=== PATIENT | female | born 1935 | race Caucasian/White ===

== ENCOUNTER 2019-02-21 06:29 | Inpatient (IN) | payer MEDICARE ==
[2019-02-21] MEDS ORDERED: D5 1/2 NS w/20 mEq KCL 1,000 ML IV SCH (08:15)
[2019-02-21] MEDS ORDERED: Pantoprazole 40 MG VIAL ONE (08:23)
[2019-02-21] MEDS ORDERED: Acetaminophen 325 MG TAB PO PRN (08:25)
[2019-02-21] MEDS ORDERED: Ondansetron PF 4 MG/2 ML Vial IVP PRN (08:25)
[2019-02-21] MEDS ORDERED: Ondansetron ODT 4 MG TAB PO PRN (08:25)
[2019-02-21] MEDS ORDERED: Acetaminophen 650 MG Suppository PR PRN (08:25)
--- NOTE | 2019-02-21 08:25 | RAD ---
EXAM: XR Abdomen 1 View/KUB PROVIDED CLINICAL HISTORY: Abdominal pain COMPARISON: None FINDINGS: Enteric catheter is noted, the tip of which overlies the left upper quadrant. Dilated loops of gas-fi lled small bowel are demonstrated. Correlate with recent CT. IMPRESSION: As above.
[2019-02-21] MEDS ORDERED: Dextrose 50% Abboject 50 ML SYRINGE SLOW IVP PRN (09:40)
[2019-02-21] MEDS ORDERED: Dextrose 5% in Water 1,000 ML IV PRN (09:40)
[2019-02-21 10:17] LABS: Lactic Acid 2.4 mmol/L (0.5-2.2)
[2019-02-21 10:19] LABS: Phosphorus 2.6 mg/dL (2.3-4.7)
[2019-02-21 10:21] LABS: ALT (SGPT) 12 U/L (8-55); AST (SGOT) 14 U/L (5-34); Alkaline Phosphatase 54 U/L (40-150); Anion Gap 13 mmol/L (10-20); BUN (Urea Nitrogen) 9 mg/dL (9.8-20.1); Bilirubin, Total 0.4 mg/dL (0.2-1.2); Calc. Creatinine Clearance 0 mL/min (70-130); Calcium 8.8 mg/dL (7.8-10.44); Carbon Dioxide 21 mmol/L (23-31); Chloride 106 mmol/L (98-107); Estimated GFR-MDRD 62; Globulin 2.7 g/dL (2.4-3.5); Glucose 191 mg/dL (83-110); Magnesium 1.5 mg/dL (1.6-2.6); Potassium 3.8 mmol/L (3.5-5.1); Protein, Total 6.7 g/dL (6.0-8.3); Sodium 136 mmol/L (136-145)
--- NOTE | 2019-02-21 10:31 | HP ---
PRIMARY CARE PHYSICIAN: Lupillo Lin MD CHIEF COMPLAINT: Abdominal pain, nausea, and vomiting. HISTORY OF PRESENT ILLNESS: Ms. Guevara is an 83-year-old female, with past medical history of hypertension, hyperlipidemia, diabetes mellitus type 2, gastroesophageal reflux disease, who had presented to [place] [facility] late last night due to worsening abdominal pain, nausea, and vomiting that had started late last night. She states that she had vomited every 20 to 30 minutes from 10 p.m. to 2 a.m. and states that she had vomited over 10 times. She had stated that she also had a bowel movement yesterday, which had denied any blood, any fever, chills, headache, blurred vision, dizziness, chest pain, palpitations, or shortness of breath. She had taken her home Tylenol and Nexium, which had not helped with her symptoms. In [place], she underwent a CT of her abdomen, which showed a high-grade distal small bowel obstruction with transition point in the pelvis. Therefore, she was given IV Zosyn, 2 L of normal saline, morphine and Zofran for her symptoms. She was then transferred by EMS to this ED, where an NG tube was placed, and Dr. Tai with General Surgery was also consulted for further recommendations. The patient's symptoms improved, and no further vomiting at this time. She also reported that her abdominal pain has also improved. She then had an x-ray, which showed that NG tube was in place with dilated loops of gas-filled small bowel demonstrated. REVIEW OF SYSTEMS: All other systems reviewed and found to be negative unless mentioned in the HPI. PAST MEDICAL HISTORY: Hypertension, hyperlipidemia, diabetes mellitus type 2, gastroesophageal reflux disease. PAST SURGICAL HISTORY: Back, right knee, and leg surgery. PAST PSYCHIATRIC HISTORY: None. SOCIAL HISTORY: The patient denies alcohol, tobacco, or illicit drug use. KNOWN ALLERGIES: No known drug allergies. CURRENT HOME MEDICATIONS: 1. Aspirin 325 mg daily. 2. Metformin 500 mg in the morning and 1000 at bedtime. 3. Hydralazine 10 mg daily. 4. Tramadol 50 mg oral every 8 hours as needed for pain. 5. Rosuvastatin 20 mg oral at bedtime. 6. Amlodipine 5 mg oral daily. 7. Losartan-hydrochlorothiazide 100/12.5 mg oral daily. PHYSICAL EXAMINATION: VITAL SIGNS: BP 137/79, pulse 97, respirations 16, temperature 98.7, O2 saturation 95% on room air. GENERAL: The patient is awake, alert, and oriented x3. She is currently lying comfortably in bed and in no acute distress. Her family is at bedside. HEENT: Atraumatic and normocephalic. Pupils are round and reactive to light. Extraocular muscles intact. Moist mucous membranes noted. NG tube is in place and in good suction. NECK: Soft, supple. Trachea midline. CARDIOVASCULAR: Positive S1 and S2. Regular rate and rhythm. No murmur auscultated. RESPIRATORY: Clear to auscultation bilaterally. No wheezes, rales, or rhonchi. ABDOMEN: Soft, mild tenderness throughout abdomen. More prominent in the epigastric and central regions. Bowel sounds distant. MUSCULOSKELETAL: Moves all extremities equal. Pedal and radial pulses 2+ bilaterally. No edema noted. NEUROLOGIC: Cranial nerves 2 through 12 grossly intact. No focal deficits noted. Speech intact and normal. Gait not assessed. SKIN: Warm, dry and intact. No rashes. No ulceration noted. PSYCHIATRIC: Good mood and affect. LABORATORY DATA: WBC 13.2, RBC 5.24, hemoglobin 13.4, hematocrit 41.3, platelet 224. Sodium 138, potassium 3.7, anion gap 21, BUN 15, creatinine 1.15, estimated GFR 45, glucose 201, lactic acid 4.2, AST 12, ALT 14, troponin less than 0.010. Urinalysis showed 15 ketones, trace blood, otherwise unremarkable. DIAGNOSTIC IMAGING: CT abdomen and pelvis revealed high-grade distal small bowel obstruction with transition point in the pelvis. Abdominal x-ray showed enteric catheter is noted, which overlies the left upper quadrant. Dilated loops of gas-filled small bowel are demonstrated. ASSESSMENT/PLAN: 1. Small bowel obstruction. General Surgery Services, Dr. Tai was consulted by the ED staff. An NG tube was placed and in good suction. She will also be placed on IV fluids with D5W along with other symptomatic treatment. She will also be placed n.p.o. at this time and monitor closely on the medical floor. 2. History of hypertension, currently stable at this time. We will add as needed IV antihypertensives since she will be n.p.o., and then, we will restart her home regimen when she is able to tolerate an oral diet. 3. Hyperlipidemia. 4. Diabetes mellitus type 2. Hold home metformin. At this time, we will place her on insulin sliding scale with frequent Accu-Cheks and continue the D5 half-normal saline for now. 5. Gastroesophageal reflux disease. Continue on IV Pepcid. 6. Deep vein thrombosis and gastrointestinal prophylaxis. 7. Code status, full code. 8. Surrogate decision maker is her daughter, Karen Heredia. DISPOSITION: Pending further workup and clinical findings. Job ID: [id number]
[2019-02-21] MEDS: Famotidine/PF 20 mg/2ml Vial SLOW IVP SCH ×2 (10:49→21:00)
[2019-02-21] MEDS: D5 1/2 NS w/20 mEq KCL 1,000 ML IV SCH ×2 (10:49→19:30)
[2019-02-21 11:28] VITALS: BMI 33.3
[2019-02-21] MEDS: HumaLOG 300 UNITS/3 ML VIAL SC PRN (11:47)
[2019-02-21] MEDS ORDERED: Magnesium Sulfate 4 GM in Sodium Chloride 0.9% 250 ML 250 ML IVPB SCH (13:00)
--- NOTE | 2019-02-21 13:01 | CON ---
DATE OF CONSULTATION: 02/21/2019 CHIEF COMPLAINT: Small-bowel obstruction. HISTORY OF PRESENT ILLNESS: This is an 83-year-old female, who presents with acute onset of severe abdominal pain, associated with nausea and vomiting. She was seen in the emergency department where CT scan reveals evidence of high-grade small-bowel obstruction. The patient had an NG tube placed and she feels better. She denies any abdominal pain this morning. She notes persistent bloating, but no nausea with NG tube placed. The NG tube has not put out much. She had previous episode of admission, but she describes it more of a gastritis. No previous abdominal surgery. She had colonoscopy 10 years ago, which was within normal limits. They did not recommend a repeat. She denies history of chronic anorexia, food fear, melena, or hematochezia. PAST MEDICAL HISTORY: Includes hypertension, diabetes mellitus type 2, hyperlipidemia, and GERD. PAST SURGICAL HISTORY: Back, knee, and leg surgery. SOCIAL HISTORY: No smoking, alcohol, or other drugs. ALLERGIES: NO KNOWN DRUG ALLERGIES. MEDICATIONS: See list. REVIEW OF SYSTEMS: Ten-system review of systems is otherwise negative unless described above. PHYSICAL EXAMINATION: VITAL SIGNS: Blood pressure is 124/63, pulse 63, respirations 18, and she is afebrile. HEENT: Sclerae anicteric. Oropharynx clear. NECK: No lymphadenopathy. CHEST: Clear. HEART: Regular rate and rhythm. ABDOMEN: Soft, minimally distended. She has occasional bowel sounds. Abdomen is really nontender. No guarding or rebound. No obvious abdominal or inguinal hernias. EXTREMITIES: No ischemia or edema to extremities. LABORATORY DATA: White blood cell count is 13, hemoglobin 13, platelet count is 224. Sodium 136, potassium 4.1, creatinine is 0.88, magnesium 1.5. Liver tests normal. ASSESSMENT: 1. Small-bowel obstruction, no obvious causative surgery history. 2. Diabetes mellitus. 3. Hypertension. 4. Hyperlipidemia. 5. Gastroesophageal reflux disease. PLAN: Continue NG tube today, IV fluids. Tomorrow, we will order a Gastrografin small bowel follow-through. We will follow with you. Job ID: [id number]
--- NOTE | 2019-02-21 16:02 | HP ---
HISTORY OF PRESENT ILLNESS: Please refer to the history and physical dictated by Franky Randolph, for details on the hospitalization. The patient follows Dr. Lin. She presented to [facility] this morning with sudden onset of abdominal pain along with nausea and several episodes of vomiting. A CT scan of the abdomen at the emergency room was consistent with high-grade distal small bowel obstruction. The patient denies any abdominal surgeries in the past. She was transferred to this facility for hospital admission. PHYSICAL EXAMINATION: GENERAL: On examination, her abdominal pain has significantly improved. She currently has NG tube on low intermittent suction. VITAL SIGNS: Showed temperature of 97.7, pulse rate of 63, respirations of 18, blood pressure of 124/63 with O2 saturation of 96% on room air. ABDOMEN: Soft, nontender with bowel sounds. No rebound or guarding. No costovertebral angle tenderness. LABORATORY DATA: Labs were reviewed. Lactic acid at [facility] was 4.2. Repeat lactic acid was 2.4. Magnesium was 1.5, phosphorus was 2.6, creatinine was 0.8 from 1.1 this morning, bicarbonate was 18 at the emergency room. WBC was 13.2. IMAGING STUDIES: CT scan of the abdomen and pelvis by my review as discussed above. IMPRESSION: 1. High-grade small bowel obstruction. 2. Systemic inflammatory response syndrome secondary to #1. 3. Dehydration with acute kidney injury and lactic acidosis secondary to nausea, vomiting. 4. Hypomagnesemia. 5. Hypertension. 6. Hyperlipidemia. 7. Diabetes mellitus type 2. 8. Chronic kidney disease stage 2. PLAN: The patient will be monitored on the surgical floor. We will continue NG tube suction with IV fluids. Insulin sliding scale has been started. We will get Accu-Chek q.6 hours. Replace magnesium. Consult General Surgery. Monitor labs on a daily basis. Walking program. The patient was advised to ambulate. GI prophylaxis. DVT prophylaxis with SCDs. Plan was discussed with the patient and the family at the bedside, they stated understanding. The patient was seen and examined today. I discussed the case with LITO Thomas in detail. Job ID: [id number]
[2019-02-22] MEDS: HumaLOG 300 UNITS/3 ML VIAL SC PRN ×4 (00:31→16:13)
[2019-02-22] MEDS: D5 1/2 NS w/20 mEq KCL 1,000 ML IV SCH ×2 (05:42→11:16)
[2019-02-22 06:01] LABS: #Eosinphils 0.1 thou/uL (0.0-0.7); #Lymphocytes 2.2 thou/uL (1.20-3.40); #Monocytes 0.8 thou/uL (0.11-0.59); #Neutrophils 4.7 thou/uL (1.40-6.50); %Basophils 0.6 % (0.0-1.0); %Eosinophils 1.2 % (0.0-10.0); %Lymphocytes 27.9 % (21.0-51.0); %Monocytes 10.5 % (0.0-10.0); %Neutrophils 59.8 % (42.0-75.0); Hemoglobin 12.1 g/dL (12.0-16.0); Mean Corpuscular HGB CONC 33.1 g/dL (32.0-36.0); Mean Corpuscular Hemoglobin 27.6 pg (27.0-31.0); Mean Corpuscular Volume 83.5 fL (78.0-98.0); Mean Platelet Volume 7.7 fL (7.4-10.4); Platelet Count 202 thou/uL (130-400); RBC Distribution Width 13.4 % (11.5-14.5); White Blood Cell (WBC) Count 7.8 thou/uL (4.8-10.8)
[2019-02-22 06:17] LABS: Lactic Acid 1.2 mmol/L (0.5-2.2)
[2019-02-22 06:22] LABS: Phosphorus 2.3 mg/dL (2.3-4.7)
[2019-02-22 06:23] LABS: ALT (SGPT) 11 U/L (8-55); AST (SGOT) 17 U/L (5-34); Albumin 3.6 g/dL (3.4-4.8); Alkaline Phosphatase 49 U/L (40-150); Anion Gap 11 mmol/L (10-20); BUN (Urea Nitrogen) 4 mg/dL (9.8-20.1); Bilirubin, Total 0.5 mg/dL (0.2-1.2); Calc. Creatinine Clearance 89 mL/min (70-130); Calcium 8.4 mg/dL (7.8-10.44); Carbon Dioxide 23 mmol/L (23-31); Chloride 108 mmol/L (98-107); Estimated GFR-MDRD 79; Globulin 2.6 g/dL (2.4-3.5); Glucose 149 mg/dL (83-110); Potassium 3.7 mmol/L (3.5-5.1); Protein, Total 6.2 g/dL (6.0-8.3); Sodium 138 mmol/L (136-145)
[2019-02-22] MEDS: Famotidine/PF 20 mg/2ml Vial SLOW IVP SCH (07:49)
--- NOTE | 2019-02-22 10:09 | RAD ---
EXAM: XR Small Bowel STANDARD PROVIDED CLINICAL HISTORY: Small bowel obstruction COMPARISON: AP abdominal radiograph on 02/21/2019. FINDINGS: Clinical Reimbursement Specialist view of the abdomen demonstrates nasogastric tube stable in position overlying the left upper q uadrant. Previously noted dilated loops of small bowel within the abdomen have improved when compared to the prior study with only a single mildly prominent distended gas-filled loop of small cruz wel in the right mid abdomen. Degenerative changes noted in the spine. A punctate calculus is seen overlying the inferior pole left renal shadow. Gastrografin small bowel study demonstrates normal caliber loops of small bowel. Contrast is seen in the colon by 1 hour. A 1 hour and 15 minute image post administration of contrast demonstrates contrast throughout the majority of the colon extending to the level of the sigmoid colon. IMPRESSION: 1. Normal caliber loops of small bowel without findings to suggest a bowel obstruction. Approximate t ransit time of contrast through the small bowel is 1 hour. 2. Left renal calculus.
--- NOTE | 2019-02-22 10:38 | PRG ---
DATE OF SERVICE: 02/22/2019 SUBJECTIVE: Ms. Guevara has no complaints. She had minimal output from her NG overnight. No more nausea. She was passing gas overnight. She is afebrile. OBJECTIVE: VITAL SIGNS: Stable. ABDOMEN: Soft, nontender, and nondistended. No guarding or rebound. She has already had a bowel movement after her small bowel followthrough. Small bowel followthrough was normal, showed good progress. ASSESSMENT: Partial small bowel obstruction, resolved. PLAN: Remove NG tube. She can do clears. She can be discharged later home today or tomorrow. Job ID: [id number]
[2019-02-22] MEDS ORDERED: MD-Gastroview 120 ML BOT ONE (12:57)
--- NOTE | 2019-02-22 13:16 | PDOC.HOSPP ---
- Subjective Encounter Date: 02/22/19 Encounter Time: 11:00 Subjective: Patient seen and examined for SBO . s/o small bowel f/t. Had 3-4 BMs. No N/V. No new complaints. No overnight events - Objective Vital Signs & Weight: Vital Signs (12 hours) Temp Pulse Resp BP Pulse Ox 02/22/19 11:22 97.9 F 91 16 154/85 H 94 L 02/22/19 07:35 99.2 F 70 16 154/75 H 97 02/22/19 04:00 98.1 F 70 16 145/67 H 97 Weight Weight 200 lb I&O: 02/21/19 02/22/19 02/23/19 06:59 06:59 06:59 Intake Total 2690 Output Total 50 Balance 2640 Result Diagrams: 02/22/19 05:40 02/22/19 05:40 Additional Labs: Accuchecks 02/22/19 02/22/19 02/22/19 11:36 05:27 00:03 POC Glucose 157 H 160 H 190 H 02/21/19 17:52 POC Glucose 118 H Hospitalist ROS - Review of Systems Respiratory: denies: cough, dry, shortness of breath, hemoptysis, SOB with excertion, pleuritic pain, sputum, wheezing, other Cardiovascular: denies: chest pain, palpitations, orthopnea, paroxysmal noc. dyspnea, edema, light headedness, other - Medication Medications: Active Medications Generic Name Dose Route Start Last Admin Trade Name Freq PRN Reason Stop Dose Admin Famotidine 20 mg 02/21/19 09:00 02/22/19 07:49 Pepcid SLOW IVP 20 mg Q12HR PEDRO Administration Potassium Chloride/Dextrose/Sod Cl 1,000 mls @ 110 mls/hr 02/21/19 08:37 11:16 D5 1/2 Ns W/20 Meq Kcl IV Not Given .Q9H6M PEDRO Insulin Human Lispro 0 units 02/21/19 09:40 02/22/19 11:36 Humalog SC 2 units .MILD SLIDING SCALE PRN Administration Mild Correctional Scale - Exam General Appearance: NAD Heart: RRR, no rubs Respiratory: CTAB, no rales Gastrointestinal: soft, non-tender, normal bowel sounds Extremities: no edema Hosp A/P - Plan IMPRESSION: 1. High-grade small bowel obstruction. 2. SIRS secondary to #1. 3. Dehydration with KAYLEE 4. Hypomagnesemia. 5. Hypertension. 6. Hyperlipidemia. 7. Diabetes mellitus type 2. 8. Chronic kidney disease stage 2. PLAN: Clear liqd diet Reduce IVF Resume home meds Hold Metformin Hold HCTZ Cont sliding scale BMP in AM
[2019-02-22] MEDS ORDERED: traMADol HCl 50 MG TAB PO PRN (13:19)
[2019-02-22] MEDS ORDERED: D5 1/2 NS w/20 mEq KCL 1,000 ML IV SCH (13:21)
[2019-02-22 15:07] VITALS: BP 146/72; TEMP 98.1
--- NOTE | 2019-02-22 15:40 | DIS ---
DATE OF ADMISSION: 02/21/2019 DATE OF DISCHARGE: 02/22/2019 DISCHARGE DISPOSITION: Home. FOLLOWUP: 1. Follow up with primary care physician, Dr. Lin in 1 week. 2. Follow up with General Surgery, Dr. Tai as needed. ALLERGIES: NO KNOWN DRUG ALLERGIES. DISCHARGE MEDICATIONS: Same as admission medication. The patient was seen and examined on the day of discharge. Please refer to my note for details. BRIEF HOSPITAL COURSE: The patient is an 83-year-old white female, who presented to the emergency room with abdominal discomfort with nausea and vomiting. Her workup was consistent with small-bowel obstruction. NG tube was placed. She was kept n.p.o. with IV fluids. Electrolytes were replaced. This morning, she underwent small-bowel follow-through. After which, she started having several bowel movements. She tolerated a full liquid diet. She has been cleared by General Surgery for discharge. FINAL DIAGNOSES: 1. High-grade small-bowel obstruction. 2. Systemic inflammatory response syndrome secondary to #1. 3. Dehydration with acute kidney injury and lactic acidosis secondary to nausea and vomiting. Lactic acid on admission was 4.2, at discharge is 1.2. Her creatinine on admission was 1.15, at discharge is 0.71. 4. Hypomagnesemia, replaced. 5. Hypertension. 6. Hyperlipidemia. 7. Diabetes mellitus, type 2. 8. Chronic kidney disease, stage 3. 9. Left renal calculus. Primary care physician advised to follow. Plan was discussed with the patient in detail. She stated understanding. Job ID: [id number]
[2019-02-22] MEDS ORDERED: hydrALAZINE 10 MG TAB PO SCH (21:00)
[2019-02-22] MEDS ORDERED: Losartan 25 MG TAB PO SCH (21:00)
[2019-02-22] MEDS ORDERED: Famotidine 20 MG TAB PO SCH (21:00)
[2019-02-22] MEDS ORDERED: Polyethylene Glycol 3350 17 GM Packet PO SCH (21:00)
[2019-02-22] MEDS ORDERED: Rosuvastatin 20 MG TAB PO SCH (21:00)
[2019-02-23] MEDS ORDERED: Aspirin 325 MG TAB PO SCH (09:00)
[2019-02-23] MEDS ORDERED: Calcium Carbonate + Vit D 250 MG TAB PO SCH (09:00)
[2019-02-23] MEDS ORDERED: Amlodipine 5 MG TAB PO SCH (09:00)
--- NOTE | 2019-02-23 11:26 | PQF ---
TATYANA CORONEL MALIK MD [id number] SURG [id number] CLINICAL DOCUMENTATION IMPROVEMENT CLARIFICATION FORM: ICD-10 Updated PLEASE DO AN ADDENDUM TO THE PROGRESS NOTE WITH ANY DOCUMENTATION UPDATES OR ADDITIONS AND CARRY THROUGH TO DC SUMMARY. THANK YOU. DATE: 02-23-19 ATTN: DR. RIOS Please exercise your independent, professional judgment in responding to the clarification form. Clinical indicators are provided on the bottom of this form for your review Please check appropriate box(s): [ x] SIRS due to SBO With organ dysfunction of lactic acidosis and KAYLEE [ ] SIRS due to SBO Without organ dysfunction [ ] Other diagnosis [ ] Unable to determine For continuity of documentation, please document condition throughout progress notes and discharge summary. Thank You. CLINICAL INDICATORS - SIGNS / SYMPTOMS / LABS 02-22 ([facility]) DC SUMMARY: * SIRS secondary to HIGH-GRADE SMALL-BOWEL OBSTRUCTION * Dehydration with KAYLEE and lactic acidosis d/t nausea and vomiting. LABS: 02-21 LACTIC ACID 2.4 BUN 9 4 GFR 62 79 RISK FACTORS 02-21 ([facility]) H&P: HIGH-GRADE SMALL BOWEL OBSTRUCTION 02-22 ([facility]) DC SUMMARY: * SIRS secondary to HIGH-GRADE SMALL-BOWEL OBSTRUCTION * Dehydration with KAYLEE and lactic acidosis d/t nausea and vomiting. TREATMENT 02-21 ([facility] H&P): * MONITORED ON SURGICAL FLOOR * NG TUBE SUCTION W/ iv FLUIDS * MONITOR LABS ON DAILY BASIS * WALKING PROGRAM - ADVISED TO AMBULATE 02-21 - CPOE - SURGERY CONSULT THANK YOU, SARINA (This form is maintained as a part of the permanent medical record) 2014 [email or web address]. All Rights Reserved Sarina Giraldo RN, BS [email or web address] [facility]
== END 2019-02-22 16:25 | disposition home or self-care (01) | DRG 388 ==
LOC: ERS 06:29 → SURG A 08:08
PROVIDERS: ADMIT Internal Medicine; ATTEND Internal Medicine
PROC: 0D9670Z Drainage of Stomach with Drainage Device, Via Natural or Artificial Opening (ICD-10-PCS; principal; 2019-02-21)
DX: K56.600 Partial intestinal obstruction, unspecified as to cause (principal); R65.11 Systemic inflammatory response syndrome (SIRS) of non-infectious origin with acute organ dysfunction; N17.9 Acute kidney failure, unspecified; E87.2 Acidosis; E86.0 Dehydration; E83.42 Hypomagnesemia; E78.5 Hyperlipidemia, unspecified; E11.9 Type 2 diabetes mellitus without complications; I12.9 Hypertensive chronic kidney disease with stage 1 through stage 4 chronic kidney disease, or unspecified chronic kidney disease; N18.3 Chronic kidney disease, stage 3 (moderate); N20.0 Calculus of kidney; K21.9 Gastro-esophageal reflux disease without esophagitis
CPT/HCPCS: 36415; 36416; 74018; 74250; 80053; 83605; 83735; 84100; 85025; C9113; J3475; J7050; Q9963; S0028

== ENCOUNTER 2019-11-04 12:20 | Outpatient (CLI) | payer MEDICARE ==
--- NOTE | 2019-11-04 14:00 | MRI ---
MRI CERVICAL SPINE WITHOUT CONTRAST: 11/04/19 INDICATION: Cervical radiculopathy. Neck pain. COMPARISON: Comparison made to prior MRI cervical spine dated 07/01/15. FINDINGS: Cervical vertebrae maintain height and alignment. Disc spaces are relatively well preserved. Mild los s of disc space at C6-7. Mild to moderate osteophytes in the cervical vertebrae again noted. Posterio r spondylosis at several levels as described. At C2-3, no significant abnormality. At C3-4, posterior disc bulge and spondylosis impinges on the cord centrally and to the right produci ng slight mild cord compression. Mild right foraminal encroachment. Findings at this level have prog ressed when compared to prior study. Increased cord compression on the right is noted today. At C4-5, posterior disc bulge and spondylosis efface the anterior subarachnoid space. No significant cord impingement. There is evidence of mild foraminal narrowing due to uncinate hypertrophy. No significant change at this level. At C5-6, posterior disc bulge and spondylosis impinge on and mildly indent the anterior cord. Similar findings at this level were present previously. Evidence of left foraminal encroachment suboptimally difficult to evaluate. At C6-7, prominent posterior disc bulge and spondylosis abuts the anterior cord. Findings at this lev el have progressed when compared to 07-19. There is bilateral foraminal encroachment due to the diffus e disc and spondylosis combined with uncinate hypertrophy. Cord signal appears normally preserved. 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 Findings are most pronounced at C3-4 where t here is cord compression anteriorly on the right as described above. POS: AGW
== END 2019-11-04 12:21 | disposition home or self-care (01) ==
LOC: TBSIIMAG 12:20
PROVIDERS: ATTEND Neurological Surgery
DX: M50.10 Cervical disc disorder with radiculopathy, unspecified cervical region (principal); M47.22 Other spondylosis with radiculopathy, cervical region
CPT/HCPCS: 72141

== ENCOUNTER 2021-05-03 11:55 | Outpatient (CLI) | payer MEDICARE ==
[2021-05-03 13:21] LABS: Hemoglobin 13.1 g/dL (12.0-15.5); Mean Corpuscular HGB CONC 31.7 g/dL (32.0-36.0); Mean Corpuscular Hemoglobin 27.1 pg (27.0-33.0); Mean Corpuscular Volume 85.5 fl (81.6-98.3); Mean Platelet Volume 9.8 fl (7.4-10.4); Platelet Count 266 10x3/uL (150-450); RBC Distribution Width 14.8 % (11.5-14.5); Red Blood Cell (RBC) Count 4.83 10x6/uL (3.90-5.03)
[2021-05-03 13:35] LABS: Anion Gap 16 mmol/L (10-20); BUN (Urea Nitrogen) 12 mg/dL (9.8-20.1); Calc. Creatinine Clearance 0 mL/min (70-130); Calcium 9.4 mg/dL (7.8-10.44); Carbon Dioxide 25 mmol/L (23-31); Chloride 101 mmol/L (98-107); Glucose 103 mg/dL (83-110); Potassium 3.9 mmol/L (3.5-5.1); Sodium 138 mmol/L (136-145)
[2021-05-03 21:37] LABS: SARS-CoV-2 PCR by NAA Not Detected (NotDetected)
== END 2021-05-03 11:56 | disposition home or self-care (01) ==
LOC: LABBT 11:55
PROVIDERS: ATTEND Neurological Surgery
DX: Z01.818 Encounter for other preprocedural examination (principal); M48.062 Spinal stenosis, lumbar region with neurogenic claudication; Z20.822 Contact with and (suspected) exposure to COVID-19
CPT/HCPCS: 80048; 85027; 93005; U0003; U0005; 93010

== ENCOUNTER 2021-05-08 06:25 | Observation (INO) | payer MEDICARE ==
[2021-05-04 12:27] VITALS: BMI 30.4
[2021-05-08] MEDS ORDERED: ceFAZolin 2 GM/DEX 5% 100 ML BAG ONE (06:46)
[2021-05-08] MEDS ORDERED: Dexmedetomidine 200 MCG/2 ML VIAL ONE (07:08)
[2021-05-08] MEDS ORDERED: Fentanyl 250 MCG/5 ML VIAL ONE (07:08)
[2021-05-08] MEDS ORDERED: Dexamethasone 20 MG/5 ML VIAL ONE (08:43)
[2021-05-08] MEDS ORDERED: Ketorolac Tromethamine 30 MG/ML VIAL ONE (08:43)
[2021-05-08] MEDS ORDERED: PROPOFOL 200 MG/20 ML VIAL ONE (08:43)
[2021-05-08] MEDS ORDERED: Glycopyrrolate 0.2 MG/ML 5 ML SYRINGE ONE (08:43)
[2021-05-08] MEDS ORDERED: Rocuronium Bromide 10 MG/ML (10ML VIAL) ONE (08:43)
[2021-05-08] MEDS ORDERED: Ondansetron PF 4 MG/2 ML Vial ONE (08:43)
[2021-05-08] MEDS ORDERED: Lidocaine 1% PF 5 ML VIAL ONE (08:43)
[2021-05-08] MEDS ORDERED: Fentanyl 100 MCG/2 ML VIAL ONE (10:18)
[2021-05-08] MEDS ORDERED: Morphine 4 MG/ML VIAL SLOW IVP PRN (12:52)
[2021-05-08] MEDS ORDERED: diphenhydrAMINE 50 MG/ML VIAL IVP PRN (13:00)
[2021-05-08] MEDS ORDERED: Promethazine HCl 12.5 MG SUPP PR PRN (13:00)
[2021-05-08] MEDS ORDERED: Mag-Al 1200 mg/1200 mg/30 ML UDCUP PO PRN (13:00)
[2021-05-08] MEDS ORDERED: tiZANidine HCl 4 MG TAB PO PRN (13:00)
[2021-05-08] MEDS ORDERED: traMADol HCl 50 MG TAB PO PRN (13:00)
[2021-05-08] MEDS ORDERED: Promethazine HCl 25 MG/ML VIAL IM PRN (13:00)
[2021-05-08] MEDS ORDERED: Promethazine 25 MG TAB PO PRN (13:00)
[2021-05-08] MEDS ORDERED: diphenhydrAMINE 25 MG CAP PO PRN (13:00)
[2021-05-08] MEDS ORDERED: Milk Of Magnesia 30 ML UDCUP PO PRN (13:00)
[2021-05-08] MEDS ORDERED: Acetaminophen/Codeine 30-300mg Tablet PO PRN ×2 (13:00)
[2021-05-08] MEDS: Morphine 4 MG/ML VIAL SLOW IVP PRN ×2 (13:01→14:24)
[2021-05-08] MEDS: Sodium Chloride 0.9% 1,000 ML IV SCH (13:06)
[2021-05-08] MEDS ORDERED: CEFAZOLIN 2 GM in Premix Bag 1 BAG IVPB SCH (14:00)
[2021-05-08] MEDS: ceFAZolin Sodium/D5W 2 GM in Premix Bag 1 BAG IVPB SCH ×2 (14:25→20:56)
[2021-05-08] MEDS ORDERED: Acetaminophen 500 MG TAB PO PRN (17:08)
[2021-05-08] MEDS ORDERED: Dextrose 5% in Water 1,000 ML IV PRN (17:13)
[2021-05-08] MEDS ORDERED: Dextrose 50% Abboject 50 ML SYRINGE SLOW IVP PRN (17:13)
[2021-05-08] MEDS: hydrALAZINE 10 MG TAB PO SCH (20:55)
[2021-05-08] MEDS ORDERED: Polyethylene Glycol 3350 17 GM Packet PO SCH (21:00)
[2021-05-08] MEDS ORDERED: Rosuvastatin 20 MG TAB PO SCH (21:00)
[2021-05-08] MEDS: traMADol HCl 50 MG TAB PO PRN (23:46)
[2021-05-09] MEDS: traMADol HCl 50 MG TAB PO PRN ×2 (05:05→11:01)
[2021-05-09] MEDS: Sodium Chloride 0.9% 1,000 ML IV SCH (05:07)
[2021-05-09 07:59] VITALS: BP 160/75; TEMP 97.7
[2021-05-09] MEDS ORDERED: metFORMIN 500 MG TAB PO SCH ×2 (08:00→17:00)
[2021-05-09] MEDS ORDERED: Amlodipine 5 MG TAB PO SCH (09:00)
[2021-05-09] MEDS ORDERED: Losartan 25 MG TAB PO SCH (09:00)
[2021-05-09] MEDS: hydrALAZINE 10 MG TAB PO SCH (10:22)
== END 2021-05-09 12:16 | disposition home or self-care (01) ==
LOC: SDC 06:25 → T4-A 10:08
PROVIDERS: ADMIT Neurological Surgery; ATTEND Neurological Surgery
PROC: 01NB0ZZ Release Lumbar Nerve, Open Approach (ICD-10-PCS; principal; 2021-05-08)
DX: M48.062 Spinal stenosis, lumbar region with neurogenic claudication (principal); I12.9 Hypertensive chronic kidney disease with stage 1 through stage 4 chronic kidney disease, or unspecified chronic kidney disease; E11.22 Type 2 diabetes mellitus with diabetic chronic kidney disease; N18.2 Chronic kidney disease, stage 2 (mild); E78.5 Hyperlipidemia, unspecified; Z79.84 Long term (current) use of oral hypoglycemic drugs; Z79.899 Other long term (current) drug therapy
CPT/HCPCS: 63047; 63048; 76000; 82962 ×2; 96374; 97116; 97139 ×2; G0378 ×2; 36416; J1100; J1885; J2270; J2405; J2704; J3010; J3370; J7050

== ENCOUNTER 2021-10-17 12:55 | Outpatient (CLI) | payer MEDICARE | END 2021-10-17 12:56 | disposition home or self-care (01) | LOC: TBSIIMAG 12:55 | PROVIDERS: ATTEND Neurological Surgery | DX: M47.26 Other spondylosis with radiculopathy, lumbar region (principal); M47.817 Spondylosis without myelopathy or radiculopathy, lumbosacral region; M51.16 Intervertebral disc disorders with radiculopathy, lumbar region; N28.89 Other specified disorders of kidney and ureter; M48.061 Spinal stenosis, lumbar region without neurogenic claudication | CPT/HCPCS: 72158; 82565 ==

== ENCOUNTER 2021-10-27 15:14 | Outpatient (CLI) | payer MEDICARE ==
[2021-10-27 16:35] LABS: Hemoglobin 12.1 g/dL (12.0-15.5); Mean Corpuscular HGB CONC 31.6 g/dL (32.0-36.0); Mean Corpuscular Hemoglobin 26.3 pg (27.0-33.0); Mean Corpuscular Volume 83.3 fl (81.6-98.3); Mean Platelet Volume 10.4 fl (7.4-10.4); Platelet Count 248 10x3/uL (150-450); RBC Distribution Width 13.9 % (11.5-14.5); White Blood Cell (WBC) Count 6.4 10x3/uL (3.5-10.5)
[2021-10-27 16:54] LABS: Anion Gap 15 mmol/L (10-20); BUN (Urea Nitrogen) 18 mg/dL (9.8-20.1); Calc. Creatinine Clearance 0 mL/min (70-130); Calcium 9.7 mg/dL (7.8-10.44); Carbon Dioxide 24 mmol/L (23-31); Chloride 101 mmol/L (98-107); Glucose 150 mg/dL (83-110); Potassium 3.8 mmol/L (3.5-5.1); Sodium 136 mmol/L (136-145)
[2021-10-28 02:05] LABS: SARS-CoV-2 PCR by NAA Not Detected (NotDetected)
== END 2021-10-27 15:15 | disposition home or self-care (01) ==
LOC: LABBT 15:14
PROVIDERS: ATTEND Neurological Surgery
DX: Z01.812 Encounter for preprocedural laboratory examination (principal); M48.062 Spinal stenosis, lumbar region with neurogenic claudication; Z20.822 Contact with and (suspected) exposure to COVID-19
CPT/HCPCS: 80048; 85027; U0003; U0005; 93005; 93010

== ENCOUNTER 2021-11-01 06:49 | Inpatient (IN) | payer MEDICARE ==
[2021-11-01] MEDS ORDERED: Fentanyl 100 MCG/2 ML VIAL ONE ×4 (07:54→12:26)
[2021-11-01] MEDS ORDERED: CEFAZOLIN 2 GM VIAL ONE (09:41)
[2021-11-01] MEDS ORDERED: Sodium Chloride 0.9% 100 ML ONE (09:41)
[2021-11-01] MEDS ORDERED: fentaNYL Citrate/PF 100 MCG/2 ML SYRINGE ONE (09:45)
[2021-11-01] MEDS ORDERED: Ketamine 50 MG/ML (10ML VIAL) ONE (09:46)
[2021-11-01] MEDS ORDERED: Ketorolac Tromethamine 30 MG/ML VIAL ONE (10:05)
[2021-11-01] MEDS ORDERED: Glycopyrrolate 0.2 MG/ML 5 ML SYRINGE ONE (10:05)
[2021-11-01] MEDS ORDERED: Dexamethasone 20 MG/5 ML VIAL ONE (10:05)
[2021-11-01] MEDS ORDERED: PROPOFOL 200 MG/20 ML VIAL ONE (10:05)
[2021-11-01] MEDS ORDERED: Lidocaine 1% PF 5 ML VIAL ONE (10:05)
[2021-11-01] MEDS ORDERED: Ondansetron PF 4 MG/2 ML Vial ONE (10:05)
[2021-11-01] MEDS ORDERED: Rocuronium Bromide 10 MG/ML (10ML VIAL) ONE (10:05)
[2021-11-01] MEDS ORDERED: HYDROmorphone 2 MG/ML VIAL ONE (10:53)
[2021-11-01] MEDS ORDERED: Ondansetron HCl/PF 4 MG/2 ML Vial IVP PRN (11:36)
[2021-11-01] MEDS ORDERED: Promethazine HCl 25 MG/ML VIAL IVPB PRN (11:36)
[2021-11-01] MEDS ORDERED: HYDROmorphone 2 MG/ML VIAL SLOW IVP PRN (11:36)
[2021-11-01] MEDS ORDERED: Promethazine HCl 25 MG/ML VIAL IM PRN (11:36)
[2021-11-01] MEDS ORDERED: Acetaminophen 500 MG TAB PO PRN (13:37)
[2021-11-01] MEDS: Acetaminophen/Codeine 30-300mg Tablet PO PRN ×2 (15:51→21:24)
[2021-11-01] MEDS: hydrALAZINE 25 MG TAB PO SCH (21:35)
[2021-11-01] MEDS: Polyethylene Glycol 3350 17 GM Packet PO SCH (21:40)
[2021-11-01] MEDS: Rosuvastatin 20 MG TAB PO SCH (21:40)
[2021-11-01] MEDS ORDERED: Dextrose 50% Abboject 50 ML SYRINGE SLOW IVP PRN (22:23)
[2021-11-01] MEDS ORDERED: Dextrose 5% in Water 1,000 ML IV PRN (22:23)
[2021-11-01] MEDS ORDERED: HumaLOG 300 UNITS/3 ML VIAL SC PRN (22:23)
[2021-11-01] MEDS: tiZANidine HCl 4 MG TAB PO PRN (23:08)
[2021-11-02] MEDS: Acetaminophen/Codeine 30-300mg Tablet PO PRN ×4 (03:19→20:41)
[2021-11-02] MEDS: metFORMIN 500 MG TAB PO SCH (08:27)
[2021-11-02] MEDS: hydrALAZINE 25 MG TAB PO SCH ×2 (08:27→20:44)
[2021-11-02] MEDS: Hydrochlorothiazide 25 MG TAB PO SCH (08:28)
[2021-11-02] MEDS: Losartan 25 MG TAB PO SCH (08:29)
[2021-11-02] MEDS: Amlodipine 5 MG TAB PO SCH (08:29)
[2021-11-02] MEDS: Calcium Carbonate + Vit D 250 MG TAB PO SCH (08:30)
[2021-11-02] MEDS ORDERED: Mag-Al Plus 1200 MG/1200 MG/120 MG/30 ML UDCUP PO PRN (10:26)
[2021-11-02] MEDS: Rosuvastatin 20 MG TAB PO SCH (20:41)
[2021-11-02] MEDS: tiZANidine HCl 4 MG TAB PO PRN (20:44)
[2021-11-02] MEDS: HumaLOG 300 UNITS/3 ML VIAL SC PRN (20:44)
[2021-11-02] MEDS: Polyethylene Glycol 3350 17 GM Packet PO SCH (20:45)
[2021-11-03] MEDS: Acetaminophen/Codeine 30-300mg Tablet PO PRN ×3 (01:21→11:49)
[2021-11-03] MEDS: HumaLOG 300 UNITS/3 ML VIAL SC PRN (04:41)
[2021-11-03] MEDS: Losartan 25 MG TAB PO SCH (08:52)
[2021-11-03] MEDS: metFORMIN 500 MG TAB PO SCH (08:52)
[2021-11-03] MEDS: hydrALAZINE 25 MG TAB PO SCH (08:53)
[2021-11-03] MEDS: Amlodipine 5 MG TAB PO SCH (08:53)
[2021-11-03] MEDS: Hydrochlorothiazide 25 MG TAB PO SCH (08:53)
[2021-11-03 10:01] VITALS: BMI 32.3
[2021-11-03] MEDS ORDERED: Ondansetron PF 4 MG/2 ML Vial IVP PRN (11:48)
[2021-11-03] MEDS ORDERED: Ondansetron PF 4 MG/2 ML Vial IVP SCH (12:00)
[2021-11-03] MEDS: Calcium Carbonate + Vit D 250 MG TAB PO SCH (12:25)
[2021-11-03 14:50] VITALS: BP 145/72; TEMP 98.1
== END 2021-11-03 14:56 | disposition home health service (06) | DRG 460 ==
LOC: SDC 06:49 → T4-B 11:48 → OBSVTOIN 11-02 08:45
PROVIDERS: ADMIT Neurological Surgery; ATTEND Neurological Surgery
PROC: 0SG0071 Fusion of Lumbar Vertebral Joint with Autologous Tissue Substitute, Posterior Approach, Posterior Column, Open Approach (ICD-10-PCS; principal; 2021-11-01)
PROC: 0SB20ZZ Excision of Lumbar Vertebral Disc, Open Approach (ICD-10-PCS; 2021-11-01)
PROC: 01NB0ZZ Release Lumbar Nerve, Open Approach (ICD-10-PCS; 2021-11-01)
PROC: 3E0U0GB Introduction of Recombinant Bone Morphogenetic Protein into Joints, Open Approach (ICD-10-PCS; 2021-11-01)
DX: M48.062 Spinal stenosis, lumbar region with neurogenic claudication (principal); Z20.822 Contact with and (suspected) exposure to COVID-19; I10 Essential (primary) hypertension; E11.9 Type 2 diabetes mellitus without complications; M51.36 Other intervertebral disc degeneration, lumbar region; K21.9 Gastro-esophageal reflux disease without esophagitis; Z98.890 Other specified postprocedural states; Z79.899 Other long term (current) drug therapy; Z79.82 Long term (current) use of aspirin; Z79.84 Long term (current) use of oral hypoglycemic drugs
CPT/HCPCS: 36416; 76000; C1713; G0378; J1100; J1170; J1815; J1885; J2405; J2704; J3010; J3370; J3490

== ENCOUNTER 2021-11-16 08:28 | Outpatient (CLI) | payer MEDICARE | END 2021-11-16 08:29 | disposition home or self-care (01) | LOC: TBSIIMAG 08:28 | PROVIDERS: ATTEND Neurological Surgery | DX: M48.062 Spinal stenosis, lumbar region with neurogenic claudication (principal); M47.816 Spondylosis without myelopathy or radiculopathy, lumbar region; Z98.890 Other specified postprocedural states | CPT/HCPCS: 72100 ==

== ENCOUNTER 2025-04-30 21:16 | Inpatient (IN) | payer OTHER ==
[2025-04-30] MEDS ORDERED: Ondansetron PF 4 MG/2 ML Vial IVP PRN (22:07)
[2025-04-30] MEDS ORDERED: Calcium Carbonate 500 MG ChewTAB PO PRN (22:07)
[2025-04-30] MEDS ORDERED: Acetaminophen 325 MG TAB PO PRN (22:07)
[2025-04-30] MEDS ORDERED: Albuterol 200 PUFF INH INH PRN (22:10)
[2025-04-30] MEDS ORDERED: Potassium Chloride 20 MEQ in Premix 1 BAG IVPB PRN (22:15)
[2025-05-01 00:24] VITALS: BMI 28.0
[2025-05-01] MEDS: Ipratropium Bromide 2.5 ml Neb NEB SCH (02:49)
[2025-05-01 05:36] LABS: #Basophils Less than 0.03 10x3/uL (0.0-0.2); #Eosinophils Less than 0.03 10x3/uL (0.0-0.7); #Monocytes 0.08 10x3/uL (0.11-0.59); #Neutrophils 5.20 10x3/uL (1.40-6.50); %Basophils 0.2 % (0.0-1.0); %Eosinophils 0.0 % (0.0-10.0); %Lymphocytes 7.3 % (21.0-51.0); %Monocytes 1.4 % (0.0-10.0); %Neutrophils 90.1 % (42.0-75.0); Hematocrit 34.3 % (36.0-47.0); Hemoglobin 11.0 g/dL (12.0-16.0); Mean Corpuscular Hemoglobin 26.5 pg (27.0-31.0); Mean Corpuscular Volume 82.7 fL (78.0-98.0); Platelet Count 265 10x3/uL (130-400); Red Blood Cell (RBC) Count 4.15 mill/uL (4.20-5.40); White Blood Cell (WBC) Count 5.77 10x3/uL (4.8-10.8)
[2025-05-01 06:00] LABS: Anion Gap 16 mmol/L (10-20); BUN (Urea Nitrogen) 15 mg/dL (9.8-20.1); Calc. Creatinine Clearance 56 mL/min (70-130); Carbon Dioxide 21 mmol/L (23-31); Chloride 99 mmol/L (98-107); Potassium 3.3 mmol/L (3.5-5.1); Sodium 133 mmol/L (136-145)
[2025-05-01 06:01] LABS: ALT (SGPT) 16 U/L (Less than 34); AST (SGOT) 19 U/L (11-34); Albumin 2.8 g/dL (3.1-4.5); Alkaline Phosphatase 37 U/L (40-110); Bilirubin, Total 0.6 mg/dL (0.3-1.2); Calcium 8.5 mg/dL (7.8-10.44); Globulin 3.3 g/dL (2.4-3.5); Glucose 265 mg/dL (83-110)
[2025-05-01] MEDS: Electrolyte Replacement Protocol 1 EACH FS ONE (06:19)
[2025-05-01] MEDS: Aspirin 325 MG TAB PO SCH (08:49)
[2025-05-01] MEDS: Calcium Carbonate 600 MG + Vit D TAB PO SCH (08:49)
[2025-05-01] MEDS: Losartan 25 MG TAB PO SCH (08:51)
[2025-05-01 11:55] LABS: Magnesium 1.4 mg/dL (1.6-2.6); Potassium 3.6 mmol/L (3.5-5.1)
[2025-05-01] MEDS: Magnesium 2 GM/50 ML(in water) 2 GM in Premix 1 BAG IVPB PRN (12:25)
[2025-05-01] MEDS: PHOS-NAK 1 PKT PACK PO PRN (12:26)
[2025-05-01] MEDS: Rosuvastatin 20 MG TAB PO SCH (21:15)
[2025-05-01] MEDS: metFORMIN 500 MG TAB PO SCH (21:16)
[2025-05-01] MEDS: Famotidine 20 MG TAB PO SCH (21:18)
[2025-05-02 05:34] LABS: #Basophils Less than 0.03 10x3/uL (0.0-0.2); #Eosinophils Less than 0.03 10x3/uL (0.0-0.7); #Monocytes 0.27 10x3/uL (0.11-0.59); #Neutrophils 8.23 10x3/uL (1.40-6.50); %Basophils 0.1 % (0.0-1.0); %Eosinophils 0.0 % (0.0-10.0); %Lymphocytes 6.2 % (21.0-51.0); %Monocytes 3.0 % (0.0-10.0); %Neutrophils 90.0 % (42.0-75.0); Hematocrit 34.5 % (36.0-47.0); Hemoglobin 10.8 g/dL (12.0-16.0); Mean Corpuscular Hemoglobin 26.1 pg (27.0-31.0); Mean Corpuscular Volume 83.3 fL (78.0-98.0); Platelet Count 280 10x3/uL (130-400); Red Blood Cell (RBC) Count 4.14 mill/uL (4.20-5.40); White Blood Cell (WBC) Count 9.14 10x3/uL (4.8-10.8)
[2025-05-02 05:59] LABS: Anion Gap 17 mmol/L (10-20); BUN (Urea Nitrogen) 18 mg/dL (9.8-20.1); Calc. Creatinine Clearance 53 mL/min (70-130); Calcium 8.7 mg/dL (7.8-10.44); Carbon Dioxide 20 mmol/L (23-31); Chloride 101 mmol/L (98-107); Glucose 355 mg/dL (83-110); Magnesium 1.9 mg/dL (1.6-2.6); Potassium 4.1 mmol/L (3.5-5.1); Sodium 134 mmol/L (136-145)
[2025-05-02 11:53] VITALS: BP 130/60; TEMP 97.8
[2025-05-02] MEDS ORDERED: Cefdinir 300 MG CAP PO SCH (21:00)
[2025-05-03] MEDS ORDERED: predniSONE 20 MG TAB PO SCH (08:00)
== END 2025-05-02 14:30 | disposition home or self-care (01) | DRG 196 ==
LOC: 2NO 21:16 → OBSVTOIN 22:07
PROVIDERS: ADMIT Family Medicine; ATTEND Hospitalist
DX: J84.9 Interstitial pulmonary disease, unspecified (principal); A41.9 Sepsis, unspecified organism; K21.9 Gastro-esophageal reflux disease without esophagitis; M19.90 Unspecified osteoarthritis, unspecified site; Z98.890 Other specified postprocedural states; J47.9 Bronchiectasis, uncomplicated; E87.6 Hypokalemia; E83.42 Hypomagnesemia; Z79.899 Other long term (current) drug therapy; I12.9 Hypertensive chronic kidney disease with stage 1 through stage 4 chronic kidney disease, or unspecified chronic kidney disease; N18.30 Chronic kidney disease, stage 3 unspecified; E11.22 Type 2 diabetes mellitus with diabetic chronic kidney disease; E78.5 Hyperlipidemia, unspecified
CPT/HCPCS: 36415; 80048; 80053; 83735; 84100; 85025; 96374; 96375; G0378; J0692; J1308; J2919; J3375; J3475; J7500; J7512; J7644